=== PATIENT | female | born 1960 | race Caucasian/White ===

== ENCOUNTER → 2016-09-03 | Outpatient (CLI) | payer BC ==
[~2016-09-03] VITALS: Ht 162.6 cm; Wt 77.1 kg
== END ==
LOC: OPSV 10:23
DX: M54.31 Sciatica, right side (principal)
CPT/HCPCS: 96372; J1100; J1885

== ENCOUNTER → 2016-09-12 | Outpatient (CLI) | payer BC | LOC: EMI 13:45 → KOH-I 09-15 11:30 | DX: M54.16 Radiculopathy, lumbar region (principal); M25.562 Pain in left knee; M51.26 Other intervertebral disc displacement, lumbar region; M17.12 Unilateral primary osteoarthritis, left knee; S83.242A Other tear of medial meniscus, current injury, left knee, initial encounter; S83.412A Sprain of medial collateral ligament of left knee, initial encounter | CPT/HCPCS: 72148; 73721 ==

== ENCOUNTER → 2020-07-03 | Outpatient (CLI) | payer BC, OTHER | LOC: RAD 15:09 | DX: M25.512 Pain in left shoulder (principal); M47.812 Spondylosis without myelopathy or radiculopathy, cervical region; M19.012 Primary osteoarthritis, left shoulder | CPT/HCPCS: 72050; 73030 ==

== ENCOUNTER → 2020-08-22 | Outpatient (CLI) | payer BC, OTHER ==
[2020-08-22 08:40] LABS: HEMOGLOBIN 13.4 gm/dl (12.3-15.3); RED BLOOD COUNT 4.49 M/UL (4.00-5.10); WHITE BLOOD COUNT 8.3 K/UL (4.5-11.0)
[2020-08-22 09:00] LABS: BUN/CREATININE RATIO 23 (0-10)
== END ==
LOC: LAB 07:29
PROVIDERS: Nurse Practitioner Family
DX: Z13.220 Encounter for screening for lipoid disorders (principal); Z00.00 Encounter for general adult medical examination without abnormal findings
CPT/HCPCS: 36415; 80053; 80061; 81001; 84439; 84443; 85025

== ENCOUNTER → 2020-10-01 | Outpatient (CLI) | payer BC, OTHER | LOC: CT 10:58 | DX: R31.9 Hematuria, unspecified (principal); N32.89 Other specified disorders of bladder | CPT/HCPCS: Q9963; Q9967 ==

== ENCOUNTER → 2021-01-16 | Outpatient (CLI) | payer BC | LOC: MAMO 01-07 13:30 → EXRD 01-07 14:00 → MAMO 09:30 → KOH-I 09:33 → MAMO 09:33 | DX: Z12.31 Encounter for screening mammogram for malignant neoplasm of breast (principal) | CPT/HCPCS: 77063; 77067 ==

== ENCOUNTER → 2021-11-27 | Outpatient (CLI) | payer BC ==
[2021-11-27 08:46] LABS: HEMOGLOBIN 14.1 gm/dl (12.3-15.3); RED BLOOD COUNT 4.69 M/UL (4.00-5.10); WHITE BLOOD COUNT 8.4 K/UL (4.5-11.0)
[2021-11-27 09:44] LABS: BUN/CREATININE RATIO 22 (0-10)
== END ==
LOC: LAB 07:47
PROVIDERS: Nurse Practitioner Family
DX: R07.89 Other chest pain (principal); M85.80 Other specified disorders of bone density and structure, unspecified site
CPT/HCPCS: 36415; 80053; 80061; 84439; 84443; 85025

== ENCOUNTER → 2021-12-18 | Outpatient (CLI) | payer BC | LOC: HEART 5 09:00 | DX: R94.31 Abnormal electrocardiogram [ECG] [EKG] (principal); R07.89 Other chest pain | CPT/HCPCS: 78452; A9502; J2785 ==

== ENCOUNTER → 2021-12-30 | Outpatient (CLI) | payer BC | LOC: EXRD 08:22 → MAMO 08:30 → EXRD 09:30 | DX: M85.89 Other specified disorders of bone density and structure, multiple sites (principal); Z78.0 Asymptomatic menopausal state | CPT/HCPCS: 77080 ==

== ENCOUNTER → 2022-01-26 | Outpatient (CLI) | payer BC | LOC: MAMO 11:00 | DX: Z12.31 Encounter for screening mammogram for malignant neoplasm of breast (principal) | CPT/HCPCS: 77063; 77067 ==